=== PATIENT | male | born 1990 | race African-American/Black ===

== ENCOUNTER 2020-06-12 07:01 | Inpatient (IN) ==
[~2020-06-12 07:01] MED LIST: LACTATED RINGERS 1,000 ML IV SCH; ceFAZolin 1,000 MG in SYRINGE 1 EACH IV ONE
[2020-06-12] MEDS ORDERED: FAMOTIDINE 20 MG TABLET PO ONE (08:52)
[2020-06-12] MEDS ORDERED: DIAZEPAM 5 MG TABLET PO ONE (08:52)
[2020-06-12] MEDS ORDERED: ALBUTEROL 2.5 MG/3 ML NEB RESP TX ONE (08:52)
[2020-06-12 09:17] LABS: Basophils # 0.1 10*3/uL (0.0-0.2); Basophils % 0.3 % (0.0-0.8); Eosinophils # 0.2 10*3/uL (0.0-0.87); Eosinophils % 1.7 % (0.00-10.9); Hematocrit 37.7 VOL% (42.0-52.0); Hemoglobin 11.6 GM/DL (14.0-18.0); Immature Granulocytes % 0.6 %; Immature Granulocytes Absolute 0.08 #; Lymphocytes # 2.5 10*3/uL (1.4-4.0); Lymphocytes % 17.1 % (21.2-54.2); Mean Corpuscular HGB Conc 30.8 GM/DL (32-36); Mean Corpuscular Volume 81.6 FL (87-102); Mean Platelet Volume 10.5 FL (9.6-12.0); Monocytes % 5.5 % (1.7-12.7); Neutrophils % 74.8 % (38.7-73.9); Platelet Count 385 T/CUMM (130-400); Red Blood Count 4.62 MC/CUMM (3.8-5.5); Red Cell Distribution Width 16.4 % (9.3-17.3); White Blood Count 14.4 T/CUMM (4-12)
[2020-06-12] MEDS ORDERED: METHYLENE BLUE 10 ML VIAL IV ONE (10:30)
[2020-06-12] MEDS ORDERED: fentaNYL 100 MCG/2 ML VIAL ONE (11:31)
[2020-06-12] MEDS ORDERED: MIDAZOLAM 2 MG/2 ML VIAL ONE (11:31)
[2020-06-12 15:49] LABS: Bacteria,Urine Occasional /HPF (Few); Bilirubin,Urine Negative (Negative); Blood, Urine Small mg/dL (Negative); Glucose,Urine (UA) Negative (Negative); Ketones,Urine Negative (Negative); Mucus,Urine Occasional /LPF (Occasional); Nitrite,Urine Negative (Negative); Protein,Urine Negative; RBC,Urine 8 /HPF (0-4); Squamous Epithelial Cell,Urine Occasional /HPF (0-10); Urine Appearance CLEAR (Clear); Urine Color Yellow (Yellow); Urine Specific Gravity 1.015 (1.001-1.035); WBC,Urine 143 /HPF (0-6)
[2020-06-12] MEDS ORDERED: POTASSIUM CHLORIDE RIDER 10 MEQ in PREMIX 1 EACH IV PRN (18:33)
[2020-06-12] MEDS ORDERED: MAGNESIUM SULF RIDER 2 GM in PREMIX 1 EACH IV PRN (18:33)
[2020-06-12] MEDS ORDERED: MAGNESIUM SULF RIDER 4 GM in PREMIX 1 EACH IV PRN (18:33)
[2020-06-12] MEDS ORDERED: ACETAMINOPHEN 325 MG TABLET PO PRN (18:38)
[2020-06-12] MEDS ORDERED: IBUPROFEN 400 MG TABLET PO PRN (18:38)
[2020-06-12] MEDS ORDERED: METOPROLOL TARTRATE 5 MG/5 ML VIAL IV PRN (18:39)
[2020-06-12] MEDS: PIPERACILLIN/TAZOBACTAM 3,375 MG in SODIUM CHLORIDE 0.9% 100 ML IV SCH (21:08)
[2020-06-12] MEDS: traMADol 50 MG TABLET PO PRN (21:08)
[2020-06-13] MEDS ORDERED: METOPROLOL TARTRATE 5 MG/5 ML VIAL IV SCH
[2020-06-13] MEDS: PIPERACILLIN/TAZOBACTAM 3,375 MG in SODIUM CHLORIDE 0.9% 100 ML IV SCH ×2 (05:25→16:43)
[2020-06-13 05:32] LABS: Basophils % 0.4 % (0.0-0.8); Eosinophils # 0.1 10*3/uL (0.0-0.87); Eosinophils % 1.2 % (0.00-10.9); Hematocrit 33.5 VOL% (42.0-52.0); Hemoglobin 10.5 GM/DL (14.0-18.0); Immature Granulocytes % 0.4 %; Immature Granulocytes Absolute 0.04 #; Lymphocytes # 2.2 10*3/uL (1.4-4.0); Lymphocytes % 19.5 % (21.2-54.2); Mean Corpuscular HGB Conc 31.3 GM/DL (32-36); Mean Corpuscular Volume 79.2 FL (87-102); Mean Platelet Volume 9.7 FL (9.6-12.0); Monocytes % 9.3 % (1.7-12.7); Neutrophils % 69.2 % (38.7-73.9); Platelet Count 367 T/CUMM (130-400); Red Blood Count 4.23 MC/CUMM (3.8-5.5); Red Cell Distribution Width 15.9 % (9.3-17.3); White Blood Count 11.2 T/CUMM (4-12)
[2020-06-13 05:56] LABS: Albumin 2.6 G/DL (3.4-5.0); Bilirubin,Total 1.3 MG/DL (0.2-1.0); Calcium 8.5 MG/DL (8.5-10.1); Total Protein 8.2 G/DL (6.4-8.3)
[2020-06-13] MEDS ORDERED: SODIUM HYPOCHLORITE 0.25% IRRIG 473 ML BOTTLE TOP SCH (09:00)
[2020-06-13] MEDS: POTASSIUM CHLORIDE 20 MEQ TABLET PO PRN ×3 (09:54→14:24)
[2020-06-13] MEDS ORDERED: SODIUM CHLORIDE 0.9% 1,000 ML IV SCH (12:30)
[2020-06-13] MEDS: traMADol 50 MG TABLET PO PRN (12:36)
[2020-06-13] MEDS: ALBUMIN 25% 25 GM in PREMIX 1 EACH IV SCH ×2 (14:24→21:43)
[2020-06-14] MEDS: PIPERACILLIN/TAZOBACTAM 3,375 MG in SODIUM CHLORIDE 0.9% 100 ML IV SCH ×2 (03:40→11:59)
[2020-06-14 05:49] LABS: Basophils % 0.4 % (0.0-0.8); Eosinophils # 0.4 10*3/uL (0.0-0.87); Hematocrit 33.7 VOL% (42.0-52.0); Hemoglobin 10.3 GM/DL (14.0-18.0); Immature Granulocytes % 0.2 %; Immature Granulocytes Absolute 0.02 #; Lymphocytes # 2.6 10*3/uL (1.4-4.0); Lymphocytes % 32.2 % (21.2-54.2); Mean Corpuscular HGB Conc 30.6 GM/DL (32-36); Mean Platelet Volume 9.6 FL (9.6-12.0); Monocytes % 8.3 % (1.7-12.7); Neutrophils % 53.9 % (38.7-73.9); Platelet Count 360 T/CUMM (130-400); Red Blood Count 4.16 MC/CUMM (3.8-5.5); Red Cell Distribution Width 15.9 % (9.3-17.3); White Blood Count 8.2 T/CUMM (4-12)
[2020-06-14 06:08] LABS: Albumin 3.2 G/DL (3.4-5.0); Bilirubin,Total 0.9 MG/DL (0.2-1.0); Calcium 9.2 MG/DL (8.5-10.1); Osmolality,Calculated 276.4 MOS/KG (273-304); Total Protein 8.5 G/DL (6.4-8.3)
[2020-06-14] MEDS ORDERED: ALBUMIN 25% 25 GM in PREMIX 1 EACH IV SCH (08:00)
[2020-06-14 11:19] VITALS: BP 109/68
== END 2020-06-14 15:30 | disposition home or self-care (01) | DRG 580 ==
LOC: N.OR 07:01 → N.SDSINP 07:03 → N.3E 13:42
PROVIDERS: ADMIT Family Medicine; ATTEND Specialist

== ENCOUNTER 2020-07-09 12:56 | Inpatient (IN) ==
[2020-07-09] MEDS ORDERED: MAGNESIUM SULF RIDER 2 GM in PREMIX 1 EACH IV PRN (15:39)
[2020-07-09] MEDS ORDERED: ONDANSETRON 4 MG/2 ML VIAL IV PRN (15:39)
[2020-07-09] MEDS ORDERED: ACETAMINOPHEN 325 MG TABLET PO PRN (15:39)
[2020-07-09] MEDS ORDERED: MAGNESIUM SULF RIDER 4 GM in PREMIX 1 EACH IV PRN (15:39)
[2020-07-09 16:27] LABS: Basophils # 0.1 10*3/uL (0.0-0.2); Basophils % 0.3 % (0.0-0.8); Eosinophils # 0.1 10*3/uL (0.0-0.87); Eosinophils % 0.2 % (0.00-10.9); Hematocrit 37.6 VOL% (42.0-52.0); Hemoglobin 11.9 GM/DL (14.0-18.0); Immature Granulocytes % 1.4 %; Immature Granulocytes Absolute 0.37 #; Lymphocytes # 1.8 10*3/uL (1.4-4.0); Lymphocytes % 6.8 % (21.2-54.2); Mean Corpuscular HGB Conc 31.6 GM/DL (32-36); Mean Platelet Volume 9.5 FL (9.6-12.0); Neutrophils % 82.3 % (38.7-73.9); Platelet Count 318 T/CUMM (130-400); Red Blood Count 4.76 MC/CUMM (3.8-5.5); White Blood Count 26.8 T/CUMM (4-12)
[2020-07-09 16:45] LABS: Albumin 3.1 G/DL (3.4-5.0); Osmolality,Calculated 266.4 MOS/KG (273-304); Total Protein 8.7 G/DL (6.4-8.3)
[2020-07-09 17:20] LABS: Anisocytosis 2+; Hypochromasia 3+; Lymphocytes 7 % (20-55); Microcytosis 1+; Poikilocytosis 2+; Segmented Neutrophils 86 % (50-85); Total Cells Counted 100
[2020-07-09] MEDS: SODIUM CHLORIDE 0.9% 1,000 ML IV SCH (17:44)
[2020-07-09] MEDS: oxyCODONE/ACETAMINOPHEN 5-325 MG TABLET PO PRN (17:44)
[2020-07-09 18:21] LABS: Bacteria,Urine Many /HPF (Few); Bilirubin,Urine Small mg/dL (Negative); Blood, Urine Moderate mg/dL (Negative); Glucose,Urine (UA) Negative (Negative); Ketones,Urine 5 mg/dL (Negative); Mucus,Urine Many /LPF (Occasional); Nitrite,Urine Positive (Negative); Protein,Urine 100 MG/DL; RBC,Urine 15 /HPF (0-4); Squamous Epithelial Cell,Urine Occasional /HPF (0-10); Urine Appearance CLOUDY (Clear); Urine Color Amber (Yellow); WBC,Urine 87 /HPF (0-6)
[2020-07-09] MEDS: POTASSIUM CHLORIDE 20 MEQ TABLET PO PRN ×2 (19:14→22:57)
[2020-07-09] MEDS: DOCUSATE SODIUM 100 MG CAPSULE PO SCH (20:28)
[2020-07-09] MEDS: VANCOMYCIN INJ 1,250 MG in SODIUM CHLORIDE 0.9% 250 ML IV SCH (20:28)
[2020-07-09] MEDS: OXYBUTYNIN 5 MG TABLET PO SCH (20:28)
[2020-07-09] MEDS ORDERED: ENOXAPARIN 40 MG/0.4 ML SYRINGE SUBCUT SCH (21:00)
[2020-07-09] MEDS ORDERED: diphenhydrAMINE CAP 25 MG CAPSULE PO ONE (22:40)
[2020-07-10] MEDS: POTASSIUM CHLORIDE 20 MEQ TABLET PO PRN ×2 (00:38→03:09)
[2020-07-10 06:01] LABS: Basophils # 0.1 10*3/uL (0.0-0.2); Basophils % 0.2 % (0.0-0.8); Eosinophils % 0.1 % (0.00-10.9); Hematocrit 33.2 VOL% (42.0-52.0); Hemoglobin 10.6 GM/DL (14.0-18.0); Immature Granulocytes % 3.6 %; Immature Granulocytes Absolute 0.91 #; Lymphocytes # 1.9 10*3/uL (1.4-4.0); Lymphocytes % 7.5 % (21.2-54.2); Mean Corpuscular HGB Conc 31.9 GM/DL (32-36); Mean Corpuscular Volume 78.9 FL (87-102); Mean Platelet Volume 9.3 FL (9.6-12.0); Monocytes % 9.5 % (1.7-12.7); Neutrophils % 79.1 % (38.7-73.9); Platelet Count 262 T/CUMM (130-400); Red Blood Count 4.21 MC/CUMM (3.8-5.5); Red Cell Distribution Width 16.7 % (9.3-17.3); White Blood Count 25.1 T/CUMM (4-12)
[2020-07-10 06:22] LABS: Hypochromasia 1+; Lymphocytes 9 % (20-55); Microcytosis Slight; Platelet Estimate Adequate; Segmented Neutrophils 85 % (50-85); Target Cells Few; Total Cells Counted 100
[2020-07-10 06:33] LABS: Calcium 8.9 MG/DL (8.5-10.1)
[2020-07-10 06:38] LABS: Albumin 2.6 G/DL (3.4-5.0); Osmolality,Calculated 263.4 MOS/KG (273-304)
[2020-07-10 06:39] LABS: Bilirubin,Total 1.6 MG/DL (0.2-1.0); Total Protein 7.9 G/DL (6.4-8.3)
[2020-07-10] MEDS: DOCUSATE SODIUM 100 MG CAPSULE PO SCH ×2 (08:12→21:32)
[2020-07-10] MEDS: MEGESTROL 40 MG TABLET PO SCH (08:12)
[2020-07-10] MEDS: PANTOPRAZOLE 40 MG TABLET PO SCH (08:12)
[2020-07-10] MEDS: VANCOMYCIN INJ 1,250 MG in SODIUM CHLORIDE 0.9% 250 ML IV SCH ×2 (08:12→21:32)
[2020-07-10 11:01] LABS: Cholesterol Crystals None Seen /LPF
[2020-07-10 11:10] LABS: Lymphocytes,Synovial Fluid 7 %; Neutrophils,Synovial Fluid 92 %
[2020-07-10] MEDS: SODIUM CHLORIDE 0.9% 1,000 ML IV SCH ×2 (11:49→12:54)
[2020-07-10] MEDS ORDERED: SODIUM CHLORIDE 0.9% 500 ML IV ONE (13:00)
[2020-07-10] MEDS ORDERED: LIDOCAINE 2% 5 ML VIAL ONE (13:26)
[2020-07-10] MEDS ORDERED: MIDAZOLAM 2 MG/2 ML VIAL ONE (13:26)
[2020-07-10] MEDS ORDERED: fentaNYL 100 MCG/2 ML VIAL ONE (13:26)
[2020-07-10] MEDS ORDERED: propofoL 200 MG/20 ML VIAL IV ONE (13:26)
[2020-07-10] MEDS ORDERED: ONDANSETRON 4 MG/2 ML VIAL ONE (15:26)
[2020-07-10] MEDS ORDERED: KETOROLAC 30 MG/1 ML VIAL ONE (15:26)
[2020-07-10] MEDS ORDERED: DEXAMETHASONE 4 MG/1 ML VIAL ONE (15:26)
[2020-07-10] MEDS ORDERED: SEVOFLURANE 1 UNIT/15 MINUTE INH ONE (15:26)
[2020-07-10] MEDS ORDERED: KETOROLAC 30 MG/1 ML VIAL IV PRN (15:48)
[2020-07-10] MEDS ORDERED: MAGNESIUM HYDROXIDE SUSP 30 ML UDCUP PO PRN (15:48)
[2020-07-10] MEDS: LACTATED RINGERS 1,000 ML IV SCH (17:25)
[2020-07-10] MEDS: oxyCODONE/ACETAMINOPHEN 5-325 MG TABLET PO PRN (18:26)
[2020-07-10] MEDS: OXYBUTYNIN 5 MG TABLET PO SCH (21:32)
[2020-07-11] MEDS: oxyCODONE/ACETAMINOPHEN 5-325 MG TABLET PO PRN ×4 (00:34→18:49)
[2020-07-11] MEDS: LACTATED RINGERS 1,000 ML IV SCH (04:49)
[2020-07-11 06:19] LABS: Basophils % 0.1 % (0.0-0.8); Hematocrit 29.5 VOL% (42.0-52.0); Hemoglobin 9.1 GM/DL (14.0-18.0); Immature Granulocytes % 1.3 %; Immature Granulocytes Absolute 0.28 #; Lymphocytes % 4.6 % (21.2-54.2); Mean Corpuscular HGB Conc 30.8 GM/DL (32-36); Mean Corpuscular Volume 81.3 FL (87-102); Mean Platelet Volume 10.3 FL (9.6-12.0); Monocytes % 4.4 % (1.7-12.7); Neutrophils % 89.6 % (38.7-73.9); Platelet Count 243 T/CUMM (130-400); Red Blood Count 3.63 MC/CUMM (3.8-5.5); Red Cell Distribution Width 16.7 % (9.3-17.3); White Blood Count 20.8 T/CUMM (4-12)
[2020-07-11 06:49] LABS: Band Neutrophils 2 % (0-10); Hypochromasia 1+; Lymphocytes 3 % (20-55); Microcytosis Slight; Platelet Estimate Adequate; Segmented Neutrophils 93 % (50-85); Total Cells Counted 100
[2020-07-11] MEDS: DOCUSATE SODIUM 100 MG CAPSULE PO SCH ×2 (09:31→21:31)
[2020-07-11] MEDS: PANTOPRAZOLE 40 MG TABLET PO SCH (09:32)
[2020-07-11] MEDS: VANCOMYCIN INJ 1,250 MG in SODIUM CHLORIDE 0.9% 250 ML IV SCH ×2 (09:32→17:13)
[2020-07-11] MEDS: MEGESTROL 40 MG TABLET PO SCH (09:32)
[2020-07-11] MEDS: FONDAPARINUX 2.5 MG/0.5 ML SYRINGE SUBCUT SCH (10:23)
[2020-07-11] MEDS: cefTRIAXone 1,000 MG in SYRINGE 1 EACH IV SCH (11:09)
[2020-07-11] MEDS: OXYBUTYNIN 5 MG TABLET PO SCH (21:31)
[2020-07-12] MEDS: VANCOMYCIN INJ 1,250 MG in SODIUM CHLORIDE 0.9% 250 ML IV SCH ×3 (02:38→16:53)
[2020-07-12 06:13] LABS: Basophils % 0.1 % (0.0-0.8); Eosinophils # 0.1 10*3/uL (0.0-0.87); Eosinophils % 0.7 % (0.00-10.9); Hematocrit 28.8 VOL% (42.0-52.0); Immature Granulocytes % 0.8 %; Immature Granulocytes Absolute 0.13 #; Lymphocytes # 2.2 10*3/uL (1.4-4.0); Lymphocytes % 13.4 % (21.2-54.2); Mean Corpuscular HGB Conc 31.3 GM/DL (32-36); Mean Corpuscular Volume 79.8 FL (87-102); Mean Platelet Volume 10.3 FL (9.6-12.0); Monocytes % 5.6 % (1.7-12.7); Neutrophils % 79.4 % (38.7-73.9); Platelet Count 331 T/CUMM (130-400); Red Blood Count 3.61 MC/CUMM (3.8-5.5); Red Cell Distribution Width 16.7 % (9.3-17.3); White Blood Count 16.5 T/CUMM (4-12)
[2020-07-12 06:30] LABS: Calcium 8.2 MG/DL (8.5-10.1); Osmolality,Calculated 283.1 MOS/KG (273-304)
[2020-07-12] MEDS: oxyCODONE/ACETAMINOPHEN 5-325 MG TABLET PO PRN ×3 (08:05→23:00)
[2020-07-12] MEDS: DOCUSATE SODIUM 100 MG CAPSULE PO SCH ×2 (08:59→20:38)
[2020-07-12] MEDS: PANTOPRAZOLE 40 MG TABLET PO SCH (08:59)
[2020-07-12] MEDS: MEGESTROL 40 MG TABLET PO SCH (08:59)
[2020-07-12] MEDS: FONDAPARINUX 2.5 MG/0.5 ML SYRINGE SUBCUT SCH (10:58)
[2020-07-12] MEDS: cefTRIAXone 1,000 MG in SYRINGE 1 EACH IV SCH (10:58)
[2020-07-12] MEDS: OXYBUTYNIN 5 MG TABLET PO SCH (20:38)
[2020-07-13] MEDS: VANCOMYCIN INJ 1,250 MG in SODIUM CHLORIDE 0.9% 250 ML IV SCH ×3 (00:58→17:07)
[2020-07-13] MEDS: oxyCODONE/ACETAMINOPHEN 5-325 MG TABLET PO PRN ×2 (06:31→13:12)
[2020-07-13 07:07] LABS: Calcium 8.2 MG/DL (8.5-10.1); Osmolality,Calculated 278.3 MOS/KG (273-304)
[2020-07-13] MEDS: PANTOPRAZOLE 40 MG TABLET PO SCH (08:46)
[2020-07-13] MEDS: MEGESTROL 40 MG TABLET PO SCH (08:46)
[2020-07-13] MEDS: DOCUSATE SODIUM 100 MG CAPSULE PO SCH ×2 (08:46→21:34)
[2020-07-13] MEDS ORDERED: SILVER SULFADIAZINE 1% CREAM 25 GM TUBE TOP SCH (09:00)
[2020-07-13] MEDS: FONDAPARINUX 2.5 MG/0.5 ML SYRINGE SUBCUT SCH (10:32)
[2020-07-13] MEDS: cefTRIAXone 1,000 MG in SYRINGE 1 EACH IV SCH (11:27)
[2020-07-13] MEDS: OXYBUTYNIN 5 MG TABLET PO SCH (21:34)
[2020-07-14] MEDS: oxyCODONE/ACETAMINOPHEN 5-325 MG TABLET PO PRN ×2 (03:07→09:16)
[2020-07-14] MEDS: VANCOMYCIN INJ 1,250 MG in SODIUM CHLORIDE 0.9% 250 ML IV SCH ×3 (03:08→16:51)
[2020-07-14 05:57] LABS: Basophils # 0.1 10*3/uL (0.0-0.2); Basophils % 0.4 % (0.0-0.8); Eosinophils # 0.4 10*3/uL (0.0-0.87); Eosinophils % 3.4 % (0.00-10.9); Hematocrit 31.7 VOL% (42.0-52.0); Hemoglobin 9.8 GM/DL (14.0-18.0); Immature Granulocytes % 1.6 %; Lymphocytes # 3.6 10*3/uL (1.4-4.0); Lymphocytes % 29.1 % (21.2-54.2); Mean Corpuscular HGB Conc 30.9 GM/DL (32-36); Mean Corpuscular Volume 80.9 FL (87-102); Mean Platelet Volume 10.1 FL (9.6-12.0); Monocytes % 7.6 % (1.7-12.7); Neutrophils % 57.9 % (38.7-73.9); Platelet Count 405 T/CUMM (130-400); Red Blood Count 3.92 MC/CUMM (3.8-5.5); Red Cell Distribution Width 17.4 % (9.3-17.3); White Blood Count 12.5 T/CUMM (4-12)
[2020-07-14 06:08] LABS: Calcium 8.3 MG/DL (8.5-10.1); Osmolality,Calculated 277.3 MOS/KG (273-304)
[2020-07-14 07:35] LABS: Hypochromasia 4+; Microcytosis 1+; Ovalocytes Few; Polychromasia Slight
[2020-07-14 07:36] LABS: Platelet Estimate Normal
[2020-07-14] MEDS: MEGESTROL 40 MG TABLET PO SCH (09:14)
[2020-07-14] MEDS: PANTOPRAZOLE 40 MG TABLET PO SCH (09:15)
[2020-07-14] MEDS: FONDAPARINUX 2.5 MG/0.5 ML SYRINGE SUBCUT SCH (09:15)
[2020-07-14] MEDS: DOCUSATE SODIUM 100 MG CAPSULE PO SCH ×2 (09:15→21:49)
[2020-07-14] MEDS: cefTRIAXone 1,000 MG in SYRINGE 1 EACH IV SCH (12:34)
[2020-07-14] MEDS: OXYBUTYNIN 5 MG TABLET PO SCH (21:49)
[2020-07-15] MEDS: oxyCODONE/ACETAMINOPHEN 5-325 MG TABLET PO PRN ×3 (01:48→23:02)
[2020-07-15] MEDS: VANCOMYCIN INJ 1,250 MG in SODIUM CHLORIDE 0.9% 250 ML IV SCH ×2 (01:48→01:50)
[2020-07-15 07:23] LABS: Calcium 9.1 MG/DL (8.5-10.1)
[2020-07-15] MEDS: DOCUSATE SODIUM 100 MG CAPSULE PO SCH ×2 (09:03→20:47)
[2020-07-15] MEDS: PANTOPRAZOLE 40 MG TABLET PO SCH (09:03)
[2020-07-15] MEDS: MEGESTROL 40 MG TABLET PO SCH (09:03)
[2020-07-15] MEDS: FONDAPARINUX 2.5 MG/0.5 ML SYRINGE SUBCUT SCH (09:04)
[2020-07-15] MEDS: OXACILLIN 2,000 MG in SODIUM CHLORIDE 0.9% 100 ML IV SCH ×3 (10:00→20:47)
[2020-07-15 10:24] LABS: Basophils # 0.1 10*3/uL (0.0-0.2); Basophils % 0.5 % (0.0-0.8); Eosinophils # 0.3 10*3/uL (0.0-0.87); Eosinophils % 2.5 % (0.00-10.9); Hematocrit 34.9 VOL% (42.0-52.0); Hemoglobin 10.8 GM/DL (14.0-18.0); Immature Granulocytes % 3.1 %; Immature Granulocytes Absolute 0.41 #; Lymphocytes # 3.4 10*3/uL (1.4-4.0); Lymphocytes % 26.3 % (21.2-54.2); Mean Corpuscular HGB Conc 30.9 GM/DL (32-36); Mean Corpuscular Volume 79.7 FL (87-102); Mean Platelet Volume 9.1 FL (9.6-12.0); Monocytes % 8.7 % (1.7-12.7); Neutrophils % 58.9 % (38.7-73.9); Platelet Count 460 T/CUMM (130-400); Red Blood Count 4.38 MC/CUMM (3.8-5.5); Red Cell Distribution Width 17.7 % (9.3-17.3); White Blood Count 13.1 T/CUMM (4-12)
[2020-07-15] MEDS: cefTRIAXone 1,000 MG in SYRINGE 1 EACH IV SCH (11:40)
[2020-07-15] MEDS: OXYBUTYNIN 5 MG TABLET PO SCH (20:47)
[2020-07-16] MEDS: OXACILLIN 2,000 MG in SODIUM CHLORIDE 0.9% 100 ML IV SCH ×2 (02:29→09:15)
[2020-07-16 05:25] LABS: Basophils # 0.1 10*3/uL (0.0-0.2); Basophils % 0.4 % (0.0-0.8); Eosinophils # 0.4 10*3/uL (0.0-0.87); Eosinophils % 3.2 % (0.00-10.9); Hematocrit 32.7 VOL% (42.0-52.0); Hemoglobin 10.2 GM/DL (14.0-18.0); Immature Granulocytes % 2.5 %; Immature Granulocytes Absolute 0.32 #; Lymphocytes # 3.1 10*3/uL (1.4-4.0); Lymphocytes % 23.7 % (21.2-54.2); Mean Corpuscular HGB Conc 31.2 GM/DL (32-36); Mean Corpuscular Volume 80.5 FL (87-102); Mean Platelet Volume 11.5 FL (9.6-12.0); Neutrophils % 60.2 % (38.7-73.9); Platelet Count 316 T/CUMM (130-400); Red Blood Count 4.06 MC/CUMM (3.8-5.5); Red Cell Distribution Width 17.9 % (9.3-17.3)
[2020-07-16 05:48] LABS: Calcium 8.9 MG/DL (8.5-10.1); Osmolality,Calculated 270.8 MOS/KG (273-304)
[2020-07-16] MEDS: oxyCODONE/ACETAMINOPHEN 5-325 MG TABLET PO PRN (09:13)
[2020-07-16] MEDS: DOCUSATE SODIUM 100 MG CAPSULE PO SCH (09:14)
[2020-07-16] MEDS: MEGESTROL 40 MG TABLET PO SCH (09:14)
[2020-07-16] MEDS: FONDAPARINUX 2.5 MG/0.5 ML SYRINGE SUBCUT SCH (09:14)
[2020-07-16] MEDS: PANTOPRAZOLE 40 MG TABLET PO SCH (09:14)
[2020-07-16 11:19] VITALS: BP 109/56
[2020-07-16] MEDS: cefTRIAXone 1,000 MG in SYRINGE 1 EACH IV SCH (14:13)
== END 2020-07-16 13:58 | disposition home health service (06) | DRG 485 ==
LOC: N.3E
PROVIDERS: ADMIT Family Medicine; ATTEND Family Medicine

== ENCOUNTER 2020-07-26 05:58 | Inpatient (IN) ==
[2020-07-26] MEDS: LACTATED RINGERS 1,000 ML IV SCH (06:35)
[2020-07-26] MEDS ORDERED: fentaNYL 250 MCG/5 ML VIAL ONE (06:45)
[2020-07-26] MEDS ORDERED: MIDAZOLAM 2 MG/2 ML VIAL ONE ×2 (06:45→07:22)
[2020-07-26] MEDS ORDERED: BACITRACIN OINT 0.9 GM PACK TOP ONE (06:46)
[2020-07-26] MEDS ORDERED: LIDOCAINE 2% 5 ML VIAL ONE (06:47)
[2020-07-26] MEDS ORDERED: propofoL 200 MG/20 ML VIAL IV ONE (06:48)
[2020-07-26 06:51] LABS: Basophils # 0.1 10*3/uL (0.0-0.2); Basophils % 0.9 % (0.0-0.8); Eosinophils # 0.2 10*3/uL (0.0-0.87); Eosinophils % 1.3 % (0.00-10.9); Hematocrit 33.2 VOL% (42.0-52.0); Hemoglobin 10.3 GM/DL (14.0-18.0); Immature Granulocytes % 0.4 %; Immature Granulocytes Absolute 0.05 #; Lymphocytes # 3.4 10*3/uL (1.4-4.0); Mean Corpuscular Volume 80.8 FL (87-102); Mean Platelet Volume 8.9 FL (9.6-12.0); Neutrophils % 63.4 % (38.7-73.9); Platelet Count 680 T/CUMM (130-400); Red Blood Count 4.11 MC/CUMM (3.8-5.5); Red Cell Distribution Width 17.7 % (9.3-17.3); White Blood Count 13.1 T/CUMM (4-12)
[2020-07-26 07:15] LABS: Albumin 3.1 G/DL (3.4-5.0); Bilirubin,Total 0.4 MG/DL (0.2-1.0); Calcium 8.9 MG/DL (8.5-10.1)
[2020-07-26] MEDS ORDERED: DEXMEDETOMIDINE 200 MCG/2 ML VIAL ONE (07:20)
[2020-07-26] MEDS ORDERED: ONDANSETRON 4 MG/2 ML VIAL ONE (07:27)
[2020-07-26] MEDS ORDERED: SEVOFLURANE 1 UNIT/15 MINUTE INH ONE ×2 (07:45→08:08)
[2020-07-26] MEDS ORDERED: MEPERIDINE 25 MG/1 ML VIAL IV PRN (08:20)
[2020-07-26] MEDS ORDERED: PROMETHAZINE INJ 25 MG in SODIUM CHLORIDE 0.9% 50 ML IV PRN (08:20)
[2020-07-26] MEDS ORDERED: HYDROmorphone 2 MG/1 ML VIAL IV PRN (08:20)
[2020-07-26] MEDS ORDERED: ONDANSETRON 4 MG/2 ML VIAL IV PRN (08:20)
[2020-07-26] MEDS ORDERED: diphenhydrAMINE 50 MG/1 ML VIAL IV PRN (08:20)
[2020-07-26] MEDS ORDERED: MORPHINE 4 MG/1 ML VIAL IV PRN (08:25)
[2020-07-26] MEDS ORDERED: KETOROLAC 30 MG/1 ML VIAL IV PRN (08:25)
[2020-07-26] MEDS ORDERED: MAGNESIUM HYDROXIDE SUSP 30 ML UDCUP PO PRN (08:25)
[2020-07-26 08:54] LABS: Sedimentation Rate-Westergren 92 MM/HR (0-15)
[2020-07-26] MEDS: FUROSEMIDE 20 MG TABLET PO SCH (10:08)
[2020-07-26] MEDS: MEGESTROL 40 MG TABLET PO SCH (10:08)
[2020-07-26] MEDS: OXACILLIN 2,000 MG in SODIUM CHLORIDE 0.9% 100 ML IV SCH ×3 (12:44→21:05)
[2020-07-26] MEDS: oxyCODONE IR 5 MG TABLET PO PRN (13:20)
[2020-07-26] MEDS: OXYBUTYNIN 5 MG TABLET PO SCH (21:04)
[2020-07-27 00:55] LABS: Bilirubin,Urine Negative (Negative); Blood, Urine Negative (Negative); Glucose,Urine (UA) Negative (Negative); Ketones,Urine Negative (Negative); Mucus,Urine Many /LPF (Occasional); Nitrite,Urine Negative (Negative); Protein,Urine Negative; RBC,Urine 4 /HPF (0-4); Squamous Epithelial Cell,Urine Occasional /HPF (0-10); Urine Appearance CLEAR (Clear); Urine Color Yellow (Yellow); Urine Specific Gravity 1.029 (1.001-1.035); WBC,Urine 1 /HPF (0-6)
[2020-07-27] MEDS: FONDAPARINUX 2.5 MG/0.5 ML SYRINGE SUBCUT SCH (02:32)
[2020-07-27] MEDS: OXACILLIN 2,000 MG in SODIUM CHLORIDE 0.9% 100 ML IV SCH ×4 (04:21→21:27)
[2020-07-27] MEDS: oxyCODONE IR 5 MG TABLET PO PRN ×2 (04:31→20:15)
[2020-07-27 05:51] LABS: Basophils # 0.1 10*3/uL (0.0-0.2); Basophils % 0.8 % (0.0-0.8); Eosinophils # 0.2 10*3/uL (0.0-0.87); Eosinophils % 2.2 % (0.00-10.9); Immature Granulocytes % 0.4 %; Immature Granulocytes Absolute 0.04 #; Lymphocytes # 2.9 10*3/uL (1.4-4.0); Lymphocytes % 29.8 % (21.2-54.2); Mean Corpuscular HGB Conc 30.3 GM/DL (32-36); Mean Corpuscular Volume 81.9 FL (87-102); Mean Platelet Volume 9.8 FL (9.6-12.0); Monocytes % 9.7 % (1.7-12.7); Neutrophils % 57.1 % (38.7-73.9); Platelet Count 573 T/CUMM (130-400); Red Blood Count 4.03 MC/CUMM (3.8-5.5); Red Cell Distribution Width 17.5 % (9.3-17.3); White Blood Count 9.6 T/CUMM (4-12)
[2020-07-27] MEDS: LACTATED RINGERS 1,000 ML IV SCH (06:48)
[2020-07-27] MEDS: FUROSEMIDE 20 MG TABLET PO SCH (08:53)
[2020-07-27] MEDS: MEGESTROL 40 MG TABLET PO SCH (08:53)
[2020-07-27] MEDS: OXYBUTYNIN 5 MG TABLET PO SCH (20:15)
[2020-07-28] MEDS: FONDAPARINUX 2.5 MG/0.5 ML SYRINGE SUBCUT SCH (03:27)
[2020-07-28] MEDS: OXACILLIN 2,000 MG in SODIUM CHLORIDE 0.9% 100 ML IV SCH ×4 (03:29→22:18)
[2020-07-28 06:01] LABS: Basophils # 0.1 10*3/uL (0.0-0.2); Basophils % 0.6 % (0.0-0.8); Eosinophils # 0.3 10*3/uL (0.0-0.87); Eosinophils % 2.9 % (0.00-10.9); Hematocrit 31.6 VOL% (42.0-52.0); Hemoglobin 9.8 GM/DL (14.0-18.0); Immature Granulocytes % 0.4 %; Immature Granulocytes Absolute 0.04 #; Lymphocytes # 2.8 10*3/uL (1.4-4.0); Lymphocytes % 28.6 % (21.2-54.2); Mean Corpuscular Volume 82.1 FL (87-102); Mean Platelet Volume 9.3 FL (9.6-12.0); Monocytes % 7.7 % (1.7-12.7); Neutrophils % 59.8 % (38.7-73.9); Platelet Count 528 T/CUMM (130-400); Red Blood Count 3.85 MC/CUMM (3.8-5.5); Red Cell Distribution Width 17.8 % (9.3-17.3); White Blood Count 9.8 T/CUMM (4-12)
[2020-07-28] MEDS: MEGESTROL 40 MG TABLET PO SCH (08:29)
[2020-07-28] MEDS: FUROSEMIDE 20 MG TABLET PO SCH (08:29)
[2020-07-28] MEDS: OXYBUTYNIN 5 MG TABLET PO SCH (20:31)
[2020-07-28] MEDS: oxyCODONE IR 5 MG TABLET PO PRN (20:32)
[2020-07-29] MEDS: FONDAPARINUX 2.5 MG/0.5 ML SYRINGE SUBCUT SCH (03:38)
[2020-07-29] MEDS: OXACILLIN 2,000 MG in SODIUM CHLORIDE 0.9% 100 ML IV SCH ×3 (03:38→15:35)
[2020-07-29 05:43] LABS: Basophils # 0.1 10*3/uL (0.0-0.2); Basophils % 0.9 % (0.0-0.8); Eosinophils # 0.4 10*3/uL (0.0-0.87); Hematocrit 33.3 VOL% (42.0-52.0); Hemoglobin 10.2 GM/DL (14.0-18.0); Immature Granulocytes % 0.3 %; Immature Granulocytes Absolute 0.03 #; Lymphocytes % 33.6 % (21.2-54.2); Mean Corpuscular HGB Conc 30.6 GM/DL (32-36); Mean Corpuscular Volume 82.2 FL (87-102); Mean Platelet Volume 9.4 FL (9.6-12.0); Monocytes % 7.8 % (1.7-12.7); Neutrophils % 52.4 % (38.7-73.9); Platelet Count 547 T/CUMM (130-400); Red Blood Count 4.05 MC/CUMM (3.8-5.5); Red Cell Distribution Width 17.6 % (9.3-17.3); White Blood Count 8.9 T/CUMM (4-12)
[2020-07-29] MEDS: LACTATED RINGERS 1,000 ML IV SCH (07:22)
[2020-07-29] MEDS: FUROSEMIDE 20 MG TABLET PO SCH (09:04)
[2020-07-29] MEDS: MEGESTROL 40 MG TABLET PO SCH (09:04)
[2020-07-29] MEDS: oxyCODONE IR 5 MG TABLET PO PRN (09:07)
[2020-07-29 16:20] VITALS: BP 101/60
== END 2020-07-29 17:01 | disposition home or self-care (01) | DRG 485 ==
LOC: N.OR 05:58 → N.SDSINP 06:03 → N.3E 09:04
PROVIDERS: ADMIT Orthopaedic Surgery; ATTEND Orthopaedic Surgery

== ENCOUNTER 2021-02-25 13:07 | Observation (INO) ==
[2021-02-25] MEDS ORDERED: diphenhydrAMINE 50 MG/1 ML VIAL IV STA (13:20)
[2021-02-25] MEDS ORDERED: FAMOTIDINE 20 MG/2 ML VIAL IV STA (13:20)
[2021-02-25] MEDS ORDERED: methylPREDNISolone SOD SUC 125 MG/2 ML VIAL IV STA (13:20)
[2021-02-25] MEDS ORDERED: FAMOTIDINE 20 MG/2 ML VIAL IV ONE (13:25)
[2021-02-25] MEDS ORDERED: methylPREDNISolone SOD SUC 125 MG/2 ML VIAL ONE (13:25)
[2021-02-25] MEDS ORDERED: diphenhydrAMINE 50 MG/1 ML VIAL ONE (13:26)
[2021-02-25 13:59] LABS: Basophils # 0.1 10*3/uL (0.0-0.2); Basophils % 0.4 % (0.0-0.8); Hemoglobin 15.2 GM/DL (14.0-18.0); Monocytes % 6.6 % (1.7-12.7)
[2021-02-25 14:17] LABS: Alanine Aminotransferase 19 U/L (16-61); Alkaline Phosphatase 87 U/L (45-117); Aspartate Amino Transferase 17 U/L (0-37); Blood Urea Nitrogen 9 MG/DL (7-18); Calcium 9.3 MG/DL (8.5-10.1); Carbon Dioxide 22 MMOL/L (21-32); Estimated Glom Filtration Rate 194 ML/MIN; Glucose 92 MG/DL (74-106); Osmolality,Calculated 271.8 MOS/KG (273-304); Sodium 137 MMOL/L (136-145); Total Protein 9.3 G/DL (6.4-8.2)
[2021-02-25 14:19] LABS: Eosinophils # 0.2 10*3/uL (0.0-0.87); Eosinophils % 1.1 % (0.00-10.9); Immature Granulocytes % 0.5 %; Immature Granulocytes Absolute 0.09 #; Lymphocytes # 6.7 10*3/uL (1.4-4.0); Lymphocytes % 37.2 % (21.2-54.2); Mean Corpuscular HGB Conc 29.8 GM/DL (32-36); Mean Corpuscular Volume 85.3 FL (87-102); Mean Platelet Volume 10.6 FL (9.6-12.0); Neutrophils % 54.2 % (38.7-73.9); Platelet Count 608 T/CUMM (130-400); Red Blood Count 5.98 MC/CUMM (3.8-5.5); Red Cell Distribution Width 16.6 % (9.3-17.3); White Blood Count 18.1 T/CUMM (4-12)
[2021-02-25 14:53] LABS: Atypical Lymphocytes 1+; Lymphocytes 39 % (20-55); Segmented Neutrophils 54 % (50-85); Total Cells Counted 100
[2021-02-25 14:57] LABS: Platelet Estimate Normal
[2021-02-25] MEDS ORDERED: POTASSIUM CHLORIDE 20 MEQ TABLET PO STA (15:14)
[2021-02-25 15:27] LABS: Bacteria,Urine Many /HPF (Few); Bilirubin,Urine Negative (Negative); Blood, Urine Negative (Negative); Glucose,Urine (UA) Negative (Negative); Ketones,Urine Negative (Negative); Mucus,Urine Many /LPF (Occasional); Nitrite,Urine Positive (Negative); Protein,Urine 30 MG/DL; RBC,Urine 3 /HPF (0-4); Squamous Epithelial Cell,Urine Occasional /HPF (0-10); Urine Appearance Slightly Hazy (Clear); Urine Color Yellow (Yellow); Urine Specific Gravity 1.016 (1.001-1.035); Urine Urobilinogen < 2.0 EU/DL (0.2-1.0)
[2021-02-25 15:41] LABS: Barbiturates Screen,Urine Negative (Negative); Benzodiazepines Screen,Urine Negative (Negative); Cannabinoid Screen,Urine Negative (Negative); Opiate Screen,Urine Negative (Negative); Phencyclidine Screen,Urine Negative (Negative)
[2021-02-25] MEDS ORDERED: SODIUM CHLORIDE 0.9% 2,650 ML IV ONE (16:02)
[2021-02-25] MEDS ORDERED: ACETAMINOPHEN 325 MG TABLET PO PRN (16:17)
[2021-02-25] MEDS ORDERED: ONDANSETRON 4 MG/2 ML VIAL IV PRN (16:17)
[2021-02-25] MEDS: PIPERACILLIN/TAZOBACTAM 3,375 MG in SODIUM CHLORIDE 0.9% 100 ML IV SCH (16:30)
[2021-02-25] MEDS: DOCUSATE SODIUM 100 MG CAPSULE PO SCH (21:00)
[2021-02-26] MEDS: PIPERACILLIN/TAZOBACTAM 3,375 MG in SODIUM CHLORIDE 0.9% 100 ML IV SCH ×2 (00:45→08:20)
[2021-02-26 01:57] LABS: Basophils % 0.1 % (0.0-0.8); Hematocrit 39.4 VOL% (42.0-52.0); Hemoglobin 12.1 GM/DL (14.0-18.0); Immature Granulocytes % 0.4 %; Immature Granulocytes Absolute 0.03 #; Lymphocytes # 1.3 10*3/uL (1.4-4.0); Lymphocytes % 17.9 % (21.2-54.2); Mean Corpuscular HGB Conc 30.7 GM/DL (32-36); Mean Corpuscular Volume 84.2 FL (87-102); Mean Platelet Volume 10.8 FL (9.6-12.0); Monocytes % 2.5 % (1.7-12.7); Neutrophils % 79.1 % (38.7-73.9); Platelet Count 360 T/CUMM (130-400); Red Blood Count 4.68 MC/CUMM (3.8-5.5); Red Cell Distribution Width 16.3 % (9.3-17.3); White Blood Count 7.2 T/CUMM (4-12)
[2021-02-26 02:02] LABS: Calcium 8.4 MG/DL (8.5-10.1); Osmolality,Calculated 275.8 MOS/KG (273-304)
[2021-02-26 07:56] VITALS: BP 95/40
[2021-02-26] MEDS: DOCUSATE SODIUM 100 MG CAPSULE PO SCH (08:20)
[2021-02-26] MEDS ORDERED: PANTOPRAZOLE 40 MG TABLET PO SCH (09:00)
[2021-02-26] MEDS ORDERED: oxyCODONE/ACETAMINOPHEN 5-325 MG TABLET PO PRN (09:43)
[2021-02-26] MEDS ORDERED: MEGESTROL 400 MG/10 ML UDCUP PO SCH (11:00)
[2021-02-26] MEDS ORDERED: OXYBUTYNIN 5 MG TABLET PO SCH (21:00)
== END 2021-02-26 14:40 | disposition home or self-care (01) ==
LOC: N.EDINP 13:07 → N.ED 13:07 → N.3E 23:25
PROVIDERS: ADMIT Family Medicine; ATTEND Family Medicine